=== PATIENT | female | born 1990 | race American Indian/Alaskan Native ===

== ENCOUNTER 2017-02-08 09:52 | Emergency (ER) | payer MEDICAID, OTHER ==
[2017-02-08 10:44] VITALS: BP 116/72
[2017-02-08] MEDS ORDERED: NACL 0.9% 1000 ML 1,000 ML IV ONE (10:44)
[2017-02-08 11:10] LABS: Basophils % (Auto) 0.2 % (0.0-1.8); Eosinophils % (Auto) 0.2 % (0.0-4.3); Hematocrit 38.3 % (30.3-42.9); Hemoglobin 12.4 gm/dl (10.1-14.3); Mean Corpuscular HGB Conc 32 % (30-34); Mean Corpuscular Hemoglobin 30 pg (28-32); Mean Corpuscular Volume 91 fl (79-97); Platelet Count 183 K/mm3 (140-440); White Blood Count 6.9 K/mm3 (4.5-11.0)
[2017-02-08 11:31] LABS: Alanine Aminotransferase 8 units/L (7-56); Albumin 4.3 g/dL (3.9-5); Albumin/Globulin Ratio 1.1 %; Alkaline Phosphatase 62 units/L (35-129); Anion Gap 16 mmol/L; BUN/Creatinine Ratio 12.85; Bilirubin,Total 1.7 mg/dL (0.1-1.2); Blood Urea Nitrogen 9 mg/dL (7-17); Calcium 9.2 mg/dL (8.4-10.2); Carbon Dioxide 27 mmol/L (22-30); Chloride 99.4 mmol/L (98-107); Glucose 106 mg/dL (65-100); Lipase 12 units/L (13-60); Potassium 3.9 mmol/L (3.6-5.0); Sodium 138 mmol/L (137-145); Total Protein 8.1 g/dL (6.3-8.2)
--- NOTE | 2017-02-13 01:23 | ED Elopement Review ---
ED Pt Elopement review - Results review Lab results: Laboratory Tests 02/08/17 02/08/17 02/08/17 10:56 10:56 10:56 WBC 6.9 RBC 4.20 Hgb 12.4 Hct 38.3 MCV 91 MCH 30 MCHC 32 RDW 14.0 Plt Count 183 Lymph % (Auto) 20.2 Forrest % (Auto) 5.7 Eos % (Auto) 0.2 Baso % (Auto) 0.2 Lymph # 1.4 Forrest # 0.4 Eos # 0.0 Baso # 0.0 Seg Neutrophils % 73.7 H Seg Neutrophils # 5.1 PT 13.1 INR 1.00 APTT 25.0 Sodium 138 Potassium 3.9 Chloride 99.4 Carbon Dioxide 27 Anion Gap 16 BUN 9 Creatinine 0.7 Estimated GFR > 60 BUN/Creatinine Ratio 12.85 Glucose 106 H Calcium 9.2 Total Bilirubin 1.7 H AST 15 ALT 8 Alkaline Phosphatase 62 Total Protein 8.1 Albumin 4.3 Albumin/Globulin Ratio 1.1 Lipase 12 L Blood Type Antibody Screen 02/08/17 10:56 WBC RBC Hgb Hct MCV MCH MCHC RDW Plt Count Lymph % (Auto) Forrest % (Auto) Eos % (Auto) Baso % (Auto) Lymph # Forrest # Eos # Baso # Seg Neutrophils % Seg Neutrophils # PT INR APTT Sodium Potassium Chloride Carbon Dioxide Anion Gap BUN Creatinine Estimated GFR BUN/Creatinine Ratio Glucose Calcium Total Bilirubin AST ALT Alkaline Phosphatase Total Protein Albumin Albumin/Globulin Ratio Lipase Blood Type O POSITIVE Antibody Screen Negative - Call Back decision Pt Call Back Decision: No action required
== END 2017-02-08 16:48 | disposition left against medical advice (07) ==
LOC: ED 09:52
DX: R10.9 Unspecified abdominal pain (principal); R11.2 Nausea with vomiting, unspecified; R19.7 Diarrhea, unspecified; Z53.21 Procedure and treatment not carried out due to patient leaving prior to being seen by health care provider
CPT/HCPCS: 36415; 80053; 83690; 85025; 85610; 85730; 86850; 86900; 86901

== ENCOUNTER 2018-03-03 11:23 | Outpatient (CLI) | payer MEDICAID ==
[2018-03-03] MEDS ORDERED: TYLENOL PO PRN (12:07)
[2018-03-03] MEDS ORDERED: ZOFRAN IV ONE (12:08)
[2018-03-03 12:54] LABS: Basophils % (Auto) 0.3 % (0.0-1.8); Hematocrit 30.4 % (30.3-42.9); Hemoglobin 10.1 gm/dl (10.1-14.3); Lymphocytes # (Auto) 0.8 K/mm3 (1.2-5.4); Mean Corpuscular HGB Conc 33 % (30-34); Mean Corpuscular Hemoglobin 30 pg (28-32); Mean Corpuscular Volume 91 fl (79-97); Monocytes # (Auto) 0.6 K/mm3 (0.0-0.8); Platelet Count 222 K/mm3 (140-440); Red Blood Count 3.33 M/mm3 (3.65-5.03); Red Cell Distribution Width 13.4 % (13.2-15.2)
[2018-03-03 12:58] LABS: Bilirubin,Urine NEG (Negative); Blood,Urine NEG (Negative); Color,Urine Yellow (Yellow); Mucus,Urine FEW /HPF
[2018-03-03] MEDS ORDERED: LACTATED RINGERS 1,000 ML IV SCH (13:00)
[2018-03-03 13:07] LABS: Alanine Aminotransferase 8 units/L (7-56); BUN/Creatinine Ratio 18; Blood Urea Nitrogen 9 mg/dL (7-17); Calcium 7.9 mg/dL (8.4-10.2); Hemolysis Index 0
[2018-03-03 13:52] LABS: Amphetamine Screen,Urine PRESUMPTIVE NEGATIVE; Benzodiazepines Screen,Urine PRESUMPTIVE NEGATIVE; Cannabinoid Screen,Urine PRESUMPTIVE NEGATIVE; Cocaine Screen,Urine PRESUMPTIVE NEGATIVE; Methadone Screen,Urine PRESUMPTIVE NEGATIVE; Opiate Screen,Urine PRESUMPTIVE NEGATIVE
== END 2018-03-03 13:50 | disposition home or self-care (01) ==
LOC: TRG 11:23
PROVIDERS: ATTEND Obstetrics & Gynecology
DX: O47.1 False labor at or after 37 completed weeks of gestation (principal); Z3A.37 37 weeks gestation of pregnancy
CPT/HCPCS: 36415; 80053; 80307; 81001; 85025; 96360; 96374; J2405; J7120

== ENCOUNTER 2018-03-25 04:49 | Inpatient (IN) | payer MEDICAID ==
[2018-03-25] MEDS ORDERED: POLYCILLIN/NS 2 GM/100 ML 2 GM/100 ML BAG IV ONE (06:44)
[2018-03-25] MEDS ORDERED: ePHEDrine SULFATE IV PRN ×2 (06:44→08:42)
[2018-03-25] MEDS ORDERED: XYLOCAINE 2% INFILTRATI ONE (06:44)
[2018-03-25] MEDS ORDERED: SUBLIMAZE IV PRN (06:44)
[2018-03-25] MEDS ORDERED: MINERAL OIL PO PRN (06:44)
[2018-03-25] MEDS ORDERED: BRETHINE SUB-Q PRN (06:44)
[2018-03-25] MEDS ORDERED: PITOCin/NS 20 UNIT/1000ML DRIP 20 UNITS/1,000 ML BAG IV SCH (07:00)
[2018-03-25] MEDS ORDERED: LACTATED RINGERS 1,000 ML IV SCH (07:00)
[2018-03-25] MEDS ORDERED: PITOCin/NS 30 UNIT/500ML 30 UNITS/500 ML BAG IV SCH (07:00)
--- NOTE | 2018-03-25 07:04 | History and Physical Report ---
History of Present Illness Date of examination: 03/25/18 (labor) History of present illness: EDC Confirmation: 03/30/2018 Gestational Age: 8 2/7 weeks Past History : 6 Term Births: 1 Living Children: 1 Para: 1 Aborta: 4 Elect. Ab: 2 Spont. Ab: 2 # 1 Delivery date: 2009 Delivery type: SAB # 2 Delivery date: 2011 Weeks Gestation: 40 Delivery type: Delivery location: [facility] Infant Sex: Male weight: 7 lbs 8 oz Comments: lifecycle # 3 Delivery date: 2012 Delivery type: SAB # 4 Delivery date: 2013 Delivery type: EAB # 5 Delivery date: 2015 Delivery type: EAB Past Medical History: Reviewed history from 06/14/2014 and no changes required: Negative Past Medical History all rxn to CT dye Past Surgical History: Reviewed history from 06/14/2014 and no changes required: negative Past Medical History Anesthesia Complications: negative Anemia: negative Autoimmune Disorder: negative Bleeding Disorder: negative Blood Transfusions: negative Breast Disease: negative Diabetes: negative Heart Disease: negative Hypertension: negative Hepatitis/Liver Disease: negative Kidney Disease/UTI: negative Neurologic/Epilepsy/Migraines: negative Phlebitis/Varicosities: negative Psychiatric: negative Pulmonary Disease/Asthma: negative Thyroid Disease: negative Hospitalizations: negative Surgery (Non-warhead maintenance specialist): negative Infection History Hx of STD: none HIV Risk Eval: low risk Hepatitis B Risk Eval: low risk Personal hx. of genital herpes: no Partner hx. of genital herpes: no Varicella/Chicken Pox Status: Previous Disease TB Risk: no Genetic History Congenital Heart Defect: Mom: no Dad: no Brenda Disease: Mom: no Dad: no Thalassemia Mom: no Dad: no Neural Tube Defect Mom: no Dad: no Down's Syndrome Mom: no Dad: no Juan A-Sachs Mom: no Dad: no Sickle Cell Disease/Trait Mom: no Dad: no Hemophilia Mom: no Dad: no Muscular Dystrophy Mom: no Dad: no Cystic Fibrosis Mom: no Dad: no Shanel Chorea Mom: no Dad: no Mental Retardation Mom: no Dad: no Fragile X Mom: no Dad: no Other Genetic/Chromosomal Disorder Mom: no Dad: no Child w/other defect Mom: no Dad: no Enviromental Exposures Xray Exposure: no Medication, drug, or alcohol use since LMP: no Chemical/Other Exposure: no Exposure to Cat Liter: no Hx of Parvovirus (Fifth Disease): no Active Medications (reviewed today): ZOFRAN ODT 8 MG TBDP (ONDANSETRON) 1 po q12hrs prn Current Allergies (reviewed today): * IODINE (Critical) Laboratory Results Routine Urinalysis Leukocytes: negative Nitrite: negative Urobilinogen: negative Protein: negative Blood: negative Ketone: negative Bilirubin: negative Glucose: negative Urine HCG: positive Review of Systems General Denies fever, chills, sweats, anorexia, fatigue, weakness, malaise, weight loss and sleep disorder. Complains of nausea. Denies vomiting, headache, swelling of legs, abdominal pain, vaginal discharge, vaginal bleeding and contractions. Denies vaginal discharge, incontinence, dysuria, hematuria, urinary frequency, amenorrhea, menorrhagia, abnormal vaginal bleeding, pelvic pain, genital sores, decreased libido, painful periods, painful sex, urinary urgency, hot flashes, vaginal dryness, vaginal itching and vaginal odor. CV Denies chest pains, palpitations, syncope, dyspnea on exertion, orthopnea, PND and peripheral edema. Resp Denies cough, dyspnea at rest, excessive sputum, hemoptysis, wheezing and pleurisy. GI Denies nausea, vomiting, diarrhea, constipation, change in bowel habits, abdominal pain, melena, hematochezia, jaundice, gas/bloating, indigestion/ heartburn, dysphagia and odynophagia. Endo Denies cold intolerance, heat intolerance, polydipsia, polyphagia, polyuria and unusual weight change. Breast Denies left breast lump, right breast lump, nipple discharge, bloody discharge from nipple, breast pain, abnormal mammogram and breast enlargement. MS Denies back pain, joint pain, joint swelling, muscle cramps, muscle weakness, stiffness, arthritis, sciatica, restless legs, leg pain at night and leg pain with exertion. Derm Denies rash, itching, dryness and suspicious lesions. Neuro Denies paralysis, paresthesias, headache, seizures, tremors, vertigo, transient blindness, frequent falls, frequent headaches and difficulty walking. Psych Denies depression, anxiety, irritability and mood swings. Eyes Denies blurring, diplopia, irritation, discharge, vision loss, eye pain and photophobia. ENT Denies earache, ear discharge, tinnitus, decreased hearing, nasal congestion, nosebleeds, sore throat and hoarseness. Allergy Denies urticaria, allergic rash, hay fever and recurrent infections. Heme Denies abnormal bruising, bleeding and enlarged lymph nodes. 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 Adnexae: no masses or tenderness Rectovaginal: no masses or tenderness Other Exam Findings Hard to guess size, uterus so soft its hard to feel Past History - Obstetrical History Expected Date of Delivery: 03/30/18 Actual Gestation: 39 Week(s) 2 Day(s) : 6 Para: 1 Hx # Term Pregnancies: 1 Spontaneous Abortions: 2 Induced : 2 Number of Living Children: 1 Medications and Allergies Allergies Allergy/AdvReac Type Severity Reaction Status Date / Time No Known Allergies Allergy Unverified 02/08/17 10:44 Home Medications Medication Instructions Recorded Confirmed Last Taken Type Pnv No.95/Ferrous Fum/Folic AC 1 each PO QDAY 03/03/18 03/03/18 2 Days Ago History [ Formula Tablet] ~03/01/18 Active Meds: Active Medications Ephedrine Sulfate (Ephedrine Sulfate) 10 mg IV Q2M PRN PRN Reason: Hypotension Fentanyl (Sublimaze) 100 mcg IV Q2H PRN PRN Reason: Labor Pain Ampicillin Sodium (Ampicillin/Ns 1 Gm/50 Ml) 1 gm in 50 mls @ 100 mls/hr IV Q4HR ASAD; Protocol Ampicillin Sodium (Polycillin/Ns 2 Gm/100 Ml) 2 gm in 100 mls @ 100 mls/hr IV ONCE ONE; Protocol Stop: 03/25/18 07:43 Lactated Ringer's (Lactated Ringers) 1,000 mls @ 125 mls/hr IV DIRECT ASAD Oxytocin/Sodium Chloride (Pitocin/Ns 20 Unit/1000ml Drip) 20 units in 1,000 mls @ 125 mls/hr IV DIRECT ASAD Oxytocin/Sodium Chloride (Pitocin/Ns 30 Unit/500ml) 30 units in 500 mls @ 4 mls /hr IV Q30MIN ASAD; Protocol Mineral Oil (Mineral Oil) 30 ml PO QHS PRN PRN Reason: Constipation Terbutaline Sulfate (Brethine) 0.25 mg SUB-Q ONCE PRN PRN Reason: Hyperstimulation/Hypertonicity - Vital Signs Vital signs: Vital Signs Pulse BP Pulse Ox 68 123/59 100 03/25/18 05:05 03/25/18 05:05 03/25/18 05:05 Temp Pulse Resp BP Pulse Ox 97.2 F L 70 20 123/59 99 03/25/18 05:22 03/25/18 05:25 03/25/18 05:22 03/25/18 05:22 03/25/18 05:25 - Physical Exam Breasts: Positive: deferred Cardiovascular: Regular rate, Normal S1, Normal S2 Lungs: Positive: Normal air movement Abdomen: Positive: normal appearance, soft, normal bowel sounds. Negative: distention, tenderness Genitourinary (Female): Positive: normal external genitalia Vulva: both: normal Vagina: Positive: normal moisture. Negative: discharge Cervix: Negative: lesion, discharge Uterus: Positive: normal size, normal contour Adnexa: both: normal Anus/Rectum: Positive: normal perianal skin, heme negative. 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 Strep Gp B SIMBA [A] Positive HBsAg Screen Negative Negative *1 Rubella Antibodies, IgG 2.56 index Immune >0.99 *2 Non-immune <0.90 Equivocal 0.90 - 0.99 Immune >0.99 ABO Grouping O *3 Rh Factor Positive *4 Please note: Prior records for this patient's ABO / Rh type are not available for additional verification. Antibody Screen Negative Negative *5 RPR Non Reactive Non Reactive *6 WBC 5.9 x10E3/uL 3.4-10.8 *7 RBC 3.85 x10E6/uL 3.77-5.28 *8 Hemoglobin 11.4 g/dL 11.1-15.9 *9 Hematocrit 34.6 % 34.0-46.6 *10 MCV 90 fL 79-97 *11 MCH 29.6 pg 26.6-33.0 *12 MCHC 32.9 g/dL 31.5-35.7 *13 RDW 12.9 % 12.3-15.4 *14 Platelets 260 x10E3/uL 150-379 *15 Neutrophils 66 % Not Estab. *16 Lymphs 25 % Not Estab. *17 Monocytes 9 % Not Estab. *18 Eos 0 % Not Estab. *19 Basos 0 % Not Estab. *20 ! Immature Cells <No Reported Value> *21 Neutrophils (Absolute) 3.9 x10E3/uL 1.4-7.0 *22 Lymphs (Absolute) 1.5 x10E3/uL 0.7-3.1 *23 Monocytes(Absolute) 0.5 x10E3/uL 0.1-0.9 *24 Eos (Absolute) 0.0 x10E3/uL 0.0-0.4 *25 Baso (Absolute) 0.0 x10E3/uL 0.0-0.2 *26 ! Immature Granulocytes 0 % Not Estab. *27 ! Immature Grans (Abs) 0.0 x10E3/uL 0.0-0.1 *28 ! NRBC <No Reported Value> *29 Hematology Comments: <No Reported Value> *30 Tests: (2) Cystic Fibrosis Profile (229113) ! CF, Screen Comment: *31 RESULTS: Negative for 32 mutations analyzed Tests: (3) HB Solu + Rflx [facility] (185964) Hemoglobin (Hgb) Solubility Negative Negative *33 Tests: (4) Panel 619523 ([id number]) HIV Screen 4th Generation wRfx Non Reactive Non Reactive *34 Tests: (5) HCV Ab w/Rflx to Verification ([id number]) ! HCV Ab <0.1 s/co ratio 0.0-0.9 *35 Tests: (6) Comment: ([id number]) ! Comment: SPRCS *36 Non reactive HCV antibody screen is consistent with no HCV infection, unless recent infection is suspected or other evidence exists to indicate HCV infection. Tests: (7) Urine Culture, Routine ([id number]) Urine Culture, Routine Final report *37 Tests: (8) Result ([id number]) ! Result 1 MUG *38 Mixed urogenital reuben 10,000-25,000 colony forming units per mL Assessment and Plan 27yo @ 39 weeks in active labor. GBS+ Orders in EMR. Anticipate delivery.
[2018-03-25 07:34] LABS: Hemoglobin 10.8 gm/dl (10.1-14.3); Mean Corpuscular HGB Conc 33 % (30-34); Mean Corpuscular Hemoglobin 30 pg (28-32); Mean Corpuscular Volume 92 fl (79-97); Platelet Count 257 K/mm3 (140-440); Red Blood Count 3.58 M/mm3 (3.65-5.03); Red Cell Distribution Width 13.6 % (13.2-15.2)
[2018-03-25] MEDS ORDERED: XYLOCAINE MPF 2% ONE (08:30)
[2018-03-25] MEDS ORDERED: NARCAN 2 MG/2 ML IV PRN (08:42)
--- NOTE | 2018-03-25 08:42 | Anesthesia Consultation ---
Anesthesia Consult and Med Hx Date of service: 03/25/18 - Airway Anesthetic Teeth Evaluation: Good ROM Head & Neck: Adequate Mental/Hyoid Distance: Adequate Mallampati Class: Class II - Pre-Operative Health Status ASA Pre-Surgery Classification: ASA2 Proposed Anesthetic Plan: Epidural, Spinal - Pulmonary Hx Asthma: No - Cardiovascular System Hx Hypertension: No - Central Nervous System Hx Seizures: No Hx Psychiatric Problems: No - Endocrine Hx Renal Disease: No Hx Hypothyroidism: No Hx Hyperthyroidism: No - Hematic Hx Anemia: No Hx Sickle Cell Disease: No - Other Systems Hx Alcohol Use: No
[2018-03-25] MEDS ORDERED: fentaNYL-BUPIV 2 MCG/ML-0.125% 200 MCG/100 ML BAG EPIDURAL SCH (09:00)
[2018-03-25] MEDS ORDERED: AMPICILLIN/NS 1 GM/50 ML 1 GM/50 ML BAG IV SCH (10:48)
[2018-03-25] MEDS ORDERED: ZOFRAN IV PRN (11:57)
[2018-03-25] MEDS ORDERED: TYLENOL PO PRN (11:57)
[2018-03-25] MEDS ORDERED: BENADRYL PO PRN (11:57)
[2018-03-25] MEDS ORDERED: LANSINOH TP PRN (11:57)
[2018-03-25] MEDS ORDERED: PHENERGAN PO PRN (11:57)
[2018-03-25] MEDS ORDERED: NORCO 5/325 PO PRN (11:57)
[2018-03-25] MEDS ORDERED: MILK OF MAGNESIA PO PRN (11:57)
[2018-03-25] MEDS ORDERED: TUCKS PAD TP PRN (11:57)
[2018-03-25] MEDS ORDERED: DULCOLAX PR PRN (11:57)
[2018-03-25] MEDS ORDERED: SODIUM CHLORIDE FLUSH SYRINGE 10 ML IV NR (12:00)
--- NOTE | 2018-03-25 12:04 | Procedure Note ---
OB Delivery Note - Delivery Date of Delivery: 03/25/18 Roadmaster: WILLIAM ARNETT Estimated blood loss: 300cc - Vaginal Delivery presentation: vertex Delivery position: OA Intrapartum events: PROM->1hr before delivery Delivery induction: none Delivery augmentation: pitocin Delivery monitor: external FHT, external uterine Route of delivery: Delivery placenta: spontaneous Delivery cord: nuchal cord, 3 umbilical vessels Episiotomy: none Delivery laceration: none Anesthesia: epidural Delivery comments: live born female over intact perineum, CAN X 1 delivered through. Baby placed skin to skin on mom's abdomen Cord blood obt Placenta and membrane del complete and intact, 3 vessel cord. Pit IVFs. 8/9, EBL 300, Wgt 7-5 Mom and baby remain LDR stable. - Infant A at 1 minute: 8 at 5 minutes: 9 Infant Gender: Female (wgt 7-5)
[2018-03-25] MEDS: MOTRIN PO SCH ×2 (14:14→23:38)
[2018-03-25] MEDS: COLACE PO SCH (21:55)
[2018-03-25 23:58] LABS: Hematocrit 28.6 % (30.3-42.9); Hemoglobin 9.4 gm/dl (10.1-14.3)
[2018-03-26] MEDS: MOTRIN PO SCH ×4 (05:42→18:42)
--- NOTE | 2018-03-26 08:13 | Discharge Summary ---
Providers - Providers Date of Admission: 03/25/18 07:02 Date of discharge: 03/26/18 (desires d/c home today) Attending physician: TRE PRITCHETT Primary care physician: TRE PRITCHETT Hospitalization Reason for admission: labor Condition: Good Pertinent studies: post delivery H&H 9.4/28.6 Procedures: vaginal Hospital course: uncomplicated labor, and course. GBS +; treated with 2 doses of antibiotics. Disposition: DC- TO HOME OR SELFCARE - Discharge Diagnoses (1) Spontaneous vaginal delivery Status: Acute Core Measure Documentation - Palliative Care Palliative Care/ Comfort Measures: Not Applicable - Core Measures Any of the following diagnoses?: none Exam - Constitutional Vitals: Temp Pulse Resp BP Pulse Ox 98.2 F 66 20 108/54 97 03/26/18 00:00 03/26/18 00:00 03/26/18 00:00 03/26/18 00:00 03/25/18 17:03 General appearance: Present: no acute distress, well-nourished - EENT Eyes: Present: PERRL ENT: hearing intact, clear oral mucosa - Neck Neck: Present: supple, normal ROM - Respiratory Respiratory effort: normal Respiratory: bilateral: CTA - Cardiovascular Heart Sounds: Present: S1 & S2. Absent: rub, click - Extremities Extremities: pulses symmetrical, No edema Peripheral Pulses: within normal limits - Abdominal General gastrointestinal: Present: soft, non-tender, non-distended, normal bowel sounds Female genitourinary: Present: normal - Integumentary Integumentary: Present: clear, warm, dry - Musculoskeletal Musculoskeletal: gait normal, strength equal bilaterally - Psychiatric Psychiatric: appropriate mood/affect, intact judgment & insight - Neurologic Neurologic: CNII-XII intact, moves all extremities - Additional findings Additional findings: lochia scant, fundus firm, no s/s anemia. Plan Activity: no restrictions Diet: regular Follow up with: TRE PRITCHETT MD [Primary Care Provider] - 6 Weeks (Congratulations! Please call [phone] to schedule your appointment in 6 weeks. Call for any questions or concerns. )
[2018-03-26] MEDS ORDERED: M-M-R II VACCINE SUB-Q ONE (11:57)
[2018-03-26] MEDS ORDERED: BOOSTRIX IM ONE (11:57)
[2018-03-26] MEDS: COLACE PO SCH (15:27)
[2018-03-26] MEDS: PRENATAL VITAMIN PO SCH (15:28)
[2018-03-27] MEDS: MOTRIN PO SCH (06:33)
[2018-03-27] MEDS: COLACE PO SCH (10:11)
[2018-03-27] MEDS: PRENATAL VITAMIN PO SCH (10:11)
[2018-03-27 20:33] VITALS: BP 117/65
== END 2018-03-27 17:33 | disposition home or self-care (01) | DRG 775 ==
LOC: TRG 04:49 → LD 07:02 → OB 14:30
PROVIDERS: ADMIT Obstetrics & Gynecology; ATTEND Obstetrics & Gynecology
PROC: 10E0XZZ Delivery of Products of Conception, External Approach (ICD-10-PCS; principal; 2018-03-25)
PROC: 3E0R3BZ Introduction of Anesthetic Agent into Spinal Canal, Percutaneous Approach (ICD-10-PCS; 2018-03-25)
PROC: 00HU33Z Insertion of Infusion Device into Spinal Canal, Percutaneous Approach (ICD-10-PCS; 2018-03-25)
PROC: 3E0234Z Introduction of Serum, Toxoid and Vaccine into Muscle, Percutaneous Approach (ICD-10-PCS; 2018-03-26)
DX: O42.02 Full-term premature rupture of membranes, onset of labor within 24 hours of rupture (principal); O99.824 Streptococcus B carrier state complicating childbirth; O69.81X0 Labor and delivery complicated by cord around neck, without compression, not applicable or unspecified; Z3A.39 39 weeks gestation of pregnancy; Z37.0 Single live birth; Z23 Encounter for immunization
CPT/HCPCS: 36415; 85014; 85018; 85027; 86592; 86850; 86900; 86901; 99211; G0463; J0290; J2590; J3010; J7120

== ENCOUNTER 2018-05-27 23:13 | Emergency (ER) | payer MEDICAID ==
[2018-05-28 00:17] LABS: Basophils % (Auto) 0.4 % (0.0-1.8); Eosinophils # (Auto) 0.1 K/mm3 (0.0-0.4); Eosinophils % (Auto) 0.8 % (0.0-4.3); Hematocrit 37.6 % (30.3-42.9); Hemoglobin 12.3 gm/dl (10.1-14.3); Lymphocytes # (Auto) 1.9 K/mm3 (1.2-5.4); Lymphocytes % (Auto) 29.6 % (13.4-35.0); Mean Corpuscular HGB Conc 33 % (30-34); Mean Corpuscular Hemoglobin 30 pg (28-32); Mean Corpuscular Volume 92 fl (79-97); Monocytes # (Auto) 0.6 K/mm3 (0.0-0.8); Monocytes % (Auto) 9.3 % (0.0-7.3); Platelet Count 263 K/mm3 (140-440); Red Blood Count 4.08 M/mm3 (3.65-5.03); Red Cell Distribution Width 13.5 % (13.2-15.2)
[2018-05-28 00:29] LABS: BUN/Creatinine Ratio 9; Blood Urea Nitrogen 8 mg/dL (7-17); Calcium 9.3 mg/dL (8.4-10.2); Hemolysis Index 3
--- NOTE | 2018-05-28 00:39 | XRay Report ---
FINAL REPORT PROCEDURE: XR CHEST 1V AP TECHNIQUE: Chest radiograph anteroposterior view. CPT 51996 HISTORY: [facility] Respiratory Infection COMPARISON: No prior studies are available for comparison. FINDINGS: Heart: Normal. Mediastinum/Vessels: Normal. Lungs/Pleural space: Lungs are clear and expanded. There are no infiltrates, effusions or pneumothoraces.. Bony thorax: No acute osseous abnormality. Life support devices: None. IMPRESSION: No acute cardiopulmonary abnormality.
[2018-05-28] MEDS ORDERED: LIDOCAINE VISCOUS 2% PO ONE (01:00)
[2018-05-28] MEDS ORDERED: ALUM-MAG HYDROX-SIMETH 200-200-20MG/5ML PO ONE (01:00)
[2018-05-28] MEDS ORDERED: TORADOL IV ONE (01:00)
[2018-05-28] MEDS ORDERED: NACL 0.9% 1000 ML 1,000 ML IV ONE (01:09)
[2018-05-28] MEDS ORDERED: BENADRYL ONE (01:34)
[2018-05-28] MEDS ORDERED: BENADRYL IV ONE (01:41)
--- NOTE | 2018-05-28 02:03 | Emergency Department Report ---
ED Chest Pain HPI - General Chief Complaint: Upper Respiratory Infection Stated Complaint: CP Time Seen by Provider: 05/28/18 00:59 Source: patient Mode of arrival: Ambulatory Limitations: Physical Limitation - History of Present Illness Initial Comments: 1 day of sudden onset right-sided sharp chest pain that is constant, radiating to the back, pleuritic, and nonexertional. Patient smokes. Social drinker. No family history of ACS. Does not take control. No DVT or PE. No family history of sudden cardiac . Patient feels that when she lies back pain is worse. She never has had a pain like this before. Severity scale (0 -10): 10 - Related Data Home Medications Medication Instructions Recorded Confirmed Last Taken Pnv No.95/Ferrous Fum/Folic AC 1 each PO QDAY 03/03/18 03/25/18 03/24/18 17:00 [ Formula Tablet] 1 Allergies Allergy/AdvReac Type Severity Reaction Status Date / Time Iodinated Contrast- Oral and Allergy Anaphylaxis Verified 05/28/18 01:30 IV Dye Heart Score - HEART Score History: Slightly suspicious EKG: Normal Age: < 45 Risk factors: 1-2 risk factors Troponin: < normal limit HEART Score: 1 ED Review of Systems ROS: Stated complaint: CP Other details as noted in HPI Comment: All other systems reviewed and negative Cardiovascular: chest pain ED Past Medical Hx - Past Medical History Hx Hypertension: No Hx Congestive Heart Failure: No Hx Diabetes: No Hx Deep Vein Thrombosis: No Hx Renal Disease: No Hx Sickle Cell Disease: No Hx Headaches / Migraines: Yes Hx Seizures: No Hx Asthma: No Hx COPD: No Hx HIV: No - Social History Smoking Status: Current Every Day Smoker Substance Use Type: Alcohol - Medications Home Medications: Home Medications Medication Instructions Recorded Confirmed Last Taken Type Pnv No.95/Ferrous Fum/Folic AC 1 each PO QDAY 03/03/18 03/25/18 03/24/18 17:00 History [ Formula Tablet] 1 ED Physical Exam - General General appearance: alert, in no apparent distress - Head Head exam: Present: atraumatic, normocephalic - Eye Eye exam: Present: normal appearance - ENT ENT exam: Present: mucous membranes moist - Neck Neck exam: Present: normal inspection - Respiratory Respiratory exam: Present: normal lung sounds bilaterally, other (splinting in the room). Absent: respiratory distress - Cardiovascular Cardiovascular Exam: Present: regular rate, normal rhythm, other (right chest wall tenderness). Absent: systolic murmur, diastolic murmur, rubs, gallop - GI/Abdominal GI/Abdominal exam: Present: soft, normal bowel sounds. Absent: tenderness - Extremities Exam Extremities exam: Present: normal inspection - Back Exam Back exam: Present: normal inspection - Neurological Exam Neurological exam: Present: alert, oriented X3 - Psychiatric Psychiatric exam: Present: normal affect, normal mood - Skin Skin exam: Present: warm, dry, intact, normal color. Absent: rash ED Course Vital Signs 05/27/18 05/28/18 05/28/18 23:42 00:40 00:51 Temperature 98.7 F 98.8 F Pulse Rate 62 67 Respiratory 20 22 Rate Blood Pressure 113/41 Blood Pressure 94/50 [Left] O2 Sat by Pulse 100 100 100 Oximetry 05/28/18 05/28/18 05/28/18 01:01 01:31 02:00 Temperature Pulse Rate 59 L 60 Respiratory 12 13 Rate Blood Pressure 94/50 112/66 Blood Pressure [Left] O2 Sat by Pulse 99 96 Oximetry ED Medical Decision Making - Lab Data Result diagrams: 05/27/18 23:55 05/27/18 23:55 - EKG Data -: EKG Interpreted by Ak EKG shows normal: sinus rhythm, axis, QRS complexes, ST-T waves Rate: normal - EKG Data Interpretation: other (first-degree heart block) - Radiology Data Radiology results: image reviewed - Medical Decision Making 27-year-old female with no significant past medical history presents to the ER with pleuritic chest pain. Vital signs significant for mild hypertension with a systolic blood pressure in the low 100s. Lab work is significant for a positive d-dimer of 300. Chest x-ray is unremarkable. EKG is nonischemic. Given the positive d-dimer, I ordered a CT chest. Patient is appears to have mild splinting at bedside. She has a contrast allergy of hives and lip swelling. Denies any respiratory issues or throat swelling with contrast. I told the patient I could give her IV Benadryl beforehand to pretreat her versus doing a VQ scan. Patient felt comfortable receiving premedication and then getting the scan. Disposition will be per CT chest results. Presentation is concerning for PE. However, patient has no significant risk factors for PE. If negative, I would offer the patient's symptom control with the goals of outpatient follow-up. It would not be unreasonable given patient's level of discomfort, to observe her overnight given the acute onset of her symptoms. - Differential Diagnosis PE, ACS, pneumothorax, pericarditis, pneumonia, costochondritis Critical care attestation.: If time is entered above; I have spent that time in minutes in the direct care of this critically ill patient, excluding procedure time. ED Disposition Clinical Impression: Chest pain Disposition: Z-01 MED SCREENING EXAM-CONT Is pt being admited?: No Does the pt Need Aspirin: No Condition: Stable Instructions: Chest Pain (ED) Referrals: PRIMARY CARE, [Primary Care Provider] - 3-5 Days
[2018-05-28] MEDS ORDERED: DILAUDID IV ONE (02:14)
[2018-05-28] MEDS ORDERED: PEPCID IV ONE (02:49)
--- NOTE | 2018-05-28 03:23 | Cat Scan Report ---
FINAL REPORT PROCEDURE: CT ANGIO CHEST TECHNIQUE: Computerized tomographic angiography of the chest was performed after the IV injection of iodinated nonionic contrast including image processing. The image data was postprocessed using 2-dimensional multiplanar reformatted (MPR) and 3-dimensional (MIP and/or volume rendered) techniques. HISTORY: concern for PE, p/w rt chest pain COMPARISON: No prior studies are available for comparison. FINDINGS: Heart and pericardium: Normal. Thoracic aorta: Normal. Pulmonary vasculature: Normal. Lymph nodes: No enlarged thoracic lymph nodes. Lungs: Lungs are expanded. There are infiltrates at the right lung base.. Pleural space: There is no pleural effusion or pneumothorax. Musculoskeletal structures: No significant abnormality. Upper abdominal structures: Images of the upper abdomen demonstrate numerous hypodensities in the liver which could be small cysts.. IMPRESSION: There is no pulmonary embolism. There is no thoracic aortic aneurysm or dissection. Lungs are expanded. There are infiltrates at the right lung base.. There is no pleural effusion or pneumothorax. Images of the upper abdomen demonstrate numerous hypodensities in the liver which could be small cysts..
[2018-05-28] MEDS ORDERED: NORCO 5/325 PO ONE (03:42)
[2018-05-28] MEDS ORDERED: LEVAQUIN PO ONE (03:42)
--- NOTE | 2018-05-28 03:44 | Emergency Department Report ---
Blank Doc - Documentation Documentation: I assumed care of patient from Dr. Kay. I evaluated patient. She has right sided chest pain with mild dyspnea. She appeared comfortable on my exam. She has only mild nonproductive cough. Hx of tobacco abuse. +infiltrates on right chest. Will treat for CAP with levaquin and norco. First dose of levaquin provided in ED. No indication of anaphylaxis or drug reaction from IV dye. dc'd home in stable condition. Patient appears comfortable.
[2018-05-28 04:17] VITALS: BP 110/52
== END 2018-05-28 04:17 | disposition home or self-care (01) ==
LOC: ED 23:13
DX: R07.89 Other chest pain (principal); G43.909 Migraine, unspecified, not intractable, without status migrainosus; F17.200 Nicotine dependence, unspecified, uncomplicated; Z91.041 Radiographic dye allergy status
CPT/HCPCS: 36415; 71045; 71275; 80048; 83880; 84484; 85025; 85379; 93005; 93010; 96374; 96375; 99285; J1170; J1200; J1885; J7030; Q9967

== ENCOUNTER 2021-03-23 08:45 | Day surgery (SDC) | payer MEDICAID ==
--- NOTE | 2021-03-22 22:14 | History and Physical Report ---
History of Present Illness Date of examination: 03/22/21 History of present illness: Patient has been reassessed/reevaluated. H&P has been reviewed. No interval changes. This is a 30 years old female who presents with missed .Patient with Bhcg > 8000 with empty sac intrauterine sac on ultrasound. Patient desires definitive treatment Vital Signs: Patient Profile: 30 Years Old Female LMP: 01/24/2021 Height: 69 inches Weight: 158 pounds BMI: 23.33 Temp: 97.9 degrees F BP sittin / 60 (left arm) Menstrual History: LMP (date): 01/24/2021 Past History : 7 Term Births: 2 Premature Births: 0 Living Children: 2 Para: 2 Mult. Births: 0 Prev : 0 Aborta: 4 Elect. Ab: 2 Spont. Ab: 2 Ectopics: 0 # 1 Delivery date: 2009 Weeks Gestation: unsure Delivery type: SAB Comments: had D&C, no complications # 2 Delivery date: 2011 Weeks Gestation: 40 labor: no Delivery type: Hours of labor: 15 Anesthesia type: epidural Delivery location: [facility] Sex: Male weight: 7 lbs 8 oz Comments: lifecycle, no complications # 3 Delivery date: 2012 Weeks Gestation: unsure Delivery type: SAB Comments: had D&C, no complications # 4 Delivery date: 2013 Delivery type: EAB Comments: D&C, no complications # 5 Delivery date: 2015 Delivery type: EAB Comments: D&C, no complications # 6 Delivery date: 03/25/2018 Weeks Gestation: 39 labor: no Delivery type: Hours of labor: 9 Anesthesia type: epidural Delivery location: [facility] Infant Sex: female weight: 7.31 Name: "Padma" Comments: GBS+, 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 of genital herpes: no Partner hx. of genital herpes: no Hx of STD: none Current Allergies (reviewed today): * IODINE (Critical) Past Medical History: "lump in chest during pregnancies"- Past Surgical History: D&C x4 Risk Factors: Smoked Tobacco Use: Former smoker Cigarettes: Yes Year quit: 02/2021 Smokeless Tobacco Use: Never Passive smoke exposure: no Drug use: no HIV high-risk behavior: no Caffeine use: 0 drinks per day Alcohol use: no Exercise: no Seatbelt use: 100 % Review of Systems General Denies fever, chills, sweats, anorexia, fatigue, weakness, malaise, weight loss and sleep disorder. Denies vaginal discharge, incontinence, dysuria, hematuria, urinary frequency, amenorrhea, menorrhagia, abnormal vaginal bleeding, pelvic pain, genital sores, decreased libido, painful periods, painful sex, urinary urgency, hot flashes, vaginal dryness, vaginal itching and vaginal odor. CV Denies chest pains, palpitations, syncope, dyspnea on exertion, orthopnea, PND and peripheral edema. Resp Denies cough, dyspnea at rest, excessive sputum, hemoptysis, wheezing and pleurisy. GI Denies nausea, vomiting, diarrhea, constipation, change in bowel habits, abdominal pain, melena, hematochezia, jaundice, gas/bloating, indigestion/heartburn, dysphagia and odynophagia. Breast Denies left breast lump, right breast lump, nipple discharge, bloody discharge from nipple, breast pain, abnormal mammogram and breast enlargement. Psych Denies depression, anxiety, irritability and mood swings. Past History Past Medical History: other (SEE FOR DETAILS) Past Surgical History: Other (SEE FOR DETAILS) Social history: full code (SEE FOR DETAILS) Family history: other (SEE FOR DETAILS) Medications and Allergies Allergies Allergy/AdvReac Type Severity Reaction Status Date / Time Iodinated Contrast Media Allergy Anaphylaxis Verified 03/22/21 16:02 Home Medications Medication Instructions Recorded Confirmed Last Taken Type No Known Home Medications [No 03/22/21 03/22/21 Unknown History Reported Home Medications] Review of Systems Constitutional: other (SEE FOR DETAILS) Exam - Physical Exam Narrative exam: HEENT: normocephalic, no lesions or deformities Skin no significant abnormal lesions or rashes Chest: respiratory effort normal, clear to auscultation CV: regular, normal S1-S2, no murmur, no rub, no gallop Abdomen: soft, nontender, no HSM Neuro: no gross anomalities Extremities: no clubbing, cyanosis, or edema 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 Questions answered. Medical and surgical treatment options discussed Discussed risks and benefits of expectant management, treatments with medications and dilatation and curretage. Patient desires D&C. Discussed risk of surgery including infection, bleeding and risk of perforating her uterus. Questions answered. Patient understands and desires to proceed
[2021-03-23] MEDS ORDERED: ONDANSETRON 4 MG/2 ML INJ ONE (08:54)
[2021-03-23] MEDS ORDERED: LIDOCAINE MPF (2%) 20 MG/1 ML VIAL 5 ML ONE (08:54)
[2021-03-23] MEDS ORDERED: KETOROLAC 30 MG/1 ML INJ ONE (08:54)
[2021-03-23] MEDS ORDERED: dexAMETHasone 20 MG/5 ML VIAL ONE (08:54)
[2021-03-23] MEDS ORDERED: fentaNYL 100 MCG/2 ML INJ ONE (08:55)
[2021-03-23] MEDS ORDERED: propofoL 200 MG/20 ML VIAL IV ONE (08:55)
[2021-03-23] MEDS ORDERED: LACTATED RINGERS 1,000 ML ONE (09:09)
[2021-03-23] MEDS ORDERED: HYDROmorphone 1 MG/1 ML INJ IV PRN ×2 (09:24)
[2021-03-23] MEDS ORDERED: ONDANSETRON 4 MG/2 ML INJ IV PRN (09:24)
--- NOTE | 2021-03-23 09:25 | Anesthesia Day of Surgery ---
Anesthesia Day of Surgery - Day of Surgery Patient Examined: Yes Patient H&P Reviewed: Yes Patient is NPO: Yes
--- NOTE | 2021-03-23 09:27 | Anesthesia Consultation ---
Anesthesia Consult and Med Hx Date of service: 03/23/21 - Airway Anesthetic Teeth Evaluation: Crowns (Missing teeth) ROM Head & Neck: Adequate Mental/Hyoid Distance: Adequate Mallampati Class: Class II Intubation Access Assessment: Good - Pre-Operative Health Status ASA Pre-Surgery Classification: ASA2 Proposed Anesthetic Plan: General - Pulmonary Hx Smoking: Yes (Quit 5 weeks ago) Hx Asthma: No COPD: No Hx Pneumonia: No - Cardiovascular System Hx Hypertension: No - Central Nervous System Hx Seizures: No Hx Psychiatric Problems: No - Endocrine Hx Renal Disease: No Hx End Stage Renal Disease: No Hx Hypothyroidism: No Hx Hyperthyroidism: No - Hematic Hx Anemia: No Hx Sickle Cell Disease: No - Other Systems Hx Alcohol Use: No Hx Cancer: No
[2021-03-23] MEDS ORDERED: LACTATED RINGERS 1,000 ML IV SCH (09:30)
[2021-03-23 09:55] LABS: Basophils % (Auto) 0.3 % (0.0-1.8); Eosinophils % (Auto) 0.9 % (0.0-4.3); Hematocrit 34.5 % (30.3-42.9); Hemoglobin 11.5 gm/dl (10.1-14.3); Lymphocytes # (Auto) 1.4 K/mm3 (1.2-5.4); Lymphocytes % (Auto) 42.5 % (13.4-35.0); Mean Corpuscular HGB Conc 33 % (30-34); Mean Corpuscular Volume 92 fl (79-97); Monocytes # (Auto) 0.5 K/mm3 (0.0-0.8); Monocytes % (Auto) 13.7 % (0.0-7.3); Platelet Count 212 K/mm3 (140-440); Red Blood Count 3.74 M/mm3 (3.65-5.03); Red Cell Distribution Width 12.9 % (13.2-15.2)
[2021-03-23] MEDS ORDERED: MIDAZOLAM 2 MG/2 ML INJ IV NR (10:00)
[2021-03-23] MEDS ORDERED: SILVER NITRATE APPLICATOR 1 EA TP ONE (11:10)
[2021-03-23] MEDS ORDERED: METHYLERGONOVINE MALEATE 0.2 MG/ML VIAL IM ONE ×2 (12:07→12:15)
[2021-03-23] MEDS ORDERED: SODIUM CHLORIDE 0.9% IRR 1,500 ML BOTTLE IR ONE (12:20)
--- NOTE | 2021-03-23 12:26 | Operative Report ---
Operative Report Operative Report: Date of procedure: March 23, 2021 Pre-operative diagnosis: Missed Post-operative diagnosis: Same Procedure name(s): Suction dilatation and curettage Surgeon: Ceferino Viveros MD Dock Pumper: KIRTI Anesthesia: General EBL: 50 mL Complications: None Findings: A moderate amount of tissue consistent with products of conception Specimen(s): Uterine contents Procedure: The patient was brought operating room where general anesthesia was induced without difficulty. Patient was placed in dorsal lithotomy position prepped and draped in the usual sterile manner. Rubber catheter was used to empty her bladder. Speculum placed in the vagina. Tenaculum was placed at 12:00. The cervix was dilated progressively with Hegar dilators. A 10 mm suction catheter was placed through the cervical os. Several passes of the suction catheter removed the uterine contents. A gentle curettage was done with a banjo curettte. On until a gritty sensation was felt throughout the uterine cavity. Further suction with the suction curettage revealed no further products. All instruments were removed patient was hemostatic. She was awakened in the operating room and accompanied to recovery room in good condition.
--- NOTE | 2021-03-23 12:29 | Short Stay Summary ---
Short Stay Documentation Date of service: 03/23/21 - History H&P: dictated Past Medical History: other (SEE FOR DETAILS) Past Surgical History: Other (SEE FOR DETAILS) Social history: full code (SEE FOR DETAILS) - Allergies and Medications Current Medications: Allergies Iodinated Contrast Media Allergy (Verified 03/22/21 16:02) Anaphylaxis Home Medications Medication Instructions Recorded Confirmed Last Taken Type DOXYCYCLINE Hyclate [Vibramycin 100 mg PO Q12HR #14 capsule 03/23/21 Unknown Rx CAP] Ferrous Sulfate [Feosol 325 MG tab] 325 mg PO BID #60 tablet 03/23/21 Unknown Rx Ibuprofen [Motrin] 800 mg PO Q6H PRN #30 tablet 03/23/21 Unknown Rx Active Medications Hydromorphone HCl (Hydromorphone 1 Mg/1 Ml Inj) 0.25 mg IV Q10MIN PRN PRN Reason: Pain, Moderate (4-6) Stop: 03/23/21 23:00 Hydromorphone HCl (Hydromorphone 1 Mg/1 Ml Inj) 0.5 mg IV Q10MIN PRN PRN Reason: Pain , Severe (7-10) Stop: 03/23/21 23:00 Lactated Ringer's (Lactated Ringers) 1,000 mls @ 100 mls/hr IV DIRECT ASAD Last Admin: 03/23/21 09:45 Dose: 100 mls/hr Documented by: Midazolam HCl (Midazolam 2 Mg/2 Ml Inj) 2 mg IV PREOP NR Stop: 03/23/21 23:59 Ondansetron HCl (Ondansetron 4 Mg/2 Ml Inj) 4 mg IV ONCE PRN PRN Reason: Nausea And Vomiting Stop: 03/23/21 14:00 - Physical exam General appearance: no acute distress HEENT: Atraumatic Lungs: Normal air movement Breasts: deferred Heart: Regular rate Female Genitourinary: normal Rectal Exam: deferred Extremities: no ischemia - Brief post op/procedure progress note Date of procedure: 03/23/21 (See dictated note for details) - Hospital course Hospital course: Patient was admitted underwent the above him procedure without any complications. Patient will be discharged with follow-up in office in 1-2 weeks for postop check. - Disposition Condition at discharge: Good Disposition: DC-01 TO HOME OR SELFCARE - Discharge Diagnoses (1) Missed Status: Acute Short Stay Discharge Plan Activity: no restrictions, advance as tolerated Diet: regular Additional Instructions: Patient to call office for any fever, chills, nausea, vomiting or pain not controlled by pain medication. Follow up with: PRIMARY CARE, [Primary Care Provider] - 7 Days Prescriptions: Ferrous Sulfate [Feosol 325 MG tab] 325 mg PO BID #60 tablet Ibuprofen [Motrin] 800 mg PO Q6H PRN #30 tablet PRN Reason: Pain, Moderate (4-6) DOXYCYCLINE Hyclate [Vibramycin CAP] 100 mg PO Q12HR #14 capsule
[2021-03-23 13:08] VITALS: BP 112/60
--- NOTE | 2021-03-23 14:18 | Post Anesthesia Evaluation ---
- Post Anesthesia Evaluation Patient Participated: Yes Airway Patent: Yes Stable Respiratory Function: Yes Nausea/Vomiting: No Temp > 96.8F: Yes Pain Manageable: Yes Adequeate Hydration: Yes Anesthesia Complications: No Block Receding Appropriately: Not Applicable Patient on Ventilator: No
== END 2021-03-23 08:46 | disposition home or self-care (01) ==
LOC: OR 08:45
PROVIDERS: ATTEND Obstetrics & Gynecology
DX: O02.1 Missed abortion (principal); Z91.041 Radiographic dye allergy status; Z87.891 Personal history of nicotine dependence; Z98.890 Other specified postprocedural states; Z83.3 Family history of diabetes mellitus; Z80.8 Family history of malignant neoplasm of other organs or systems; Z82.49 Family history of ischemic heart disease and other diseases of the circulatory system
CPT/HCPCS: 36415; 59820; 85025; 86850; 86900; 86901; 88305; J1100; J1885; J2210; J2405; J2704; J3010; J7120

== ENCOUNTER 2022-01-17 09:37 | Observation (INO) | payer MEDICAID ==
--- NOTE | 2022-01-17 10:44 | History and Physical Report ---
History of Present Illness Date of examination: 01/17/22 Date of admission: 01/17/22 Chief complaint: I can't keep my food down History of present illness: Pt presents c/o having nausea and emesis that has not responded to zofran of phenergan supp. She has been to [facility] ED as well as [facility] and been treated for dehydration. Today is the office she has had a 6lb weight loss and states she is unable to eat anything. I d/w admission for observation and IV therapy. Pt expressed understanding and agrees with plan of care. EDC Confirmation: 08/02/2022 Gestational Age: 11 6/7 weeks Past History : 9 Term Births: 2 Premature Births: 0 Living Children: 2 Para: 2 Mult. Births: 0 Prev : 0 Aborta: 6 Elect. Ab: 2 Spont. Ab: 4 Ectopics: 0 # 1 Delivery date: 2009 Weeks Gestation: unsure Delivery type: SAB Comments: had D&C, no complications # 2 Delivery date: 2011 Weeks Gestation: 40 labor: no Delivery type: Hours of labor: 15 Anesthesia type: epidural Delivery location: [facility] Sex: Male weight: 7 lbs 8 oz Comments: lifecycle, no complications # 3 Delivery date: 2012 Weeks Gestation: unsure Delivery type: SAB Comments: had D&C, no complications # 4 Delivery date: 2013 Delivery type: EAB Comments: D&C, no complications # 5 Delivery date: 2016 Delivery type: EAB Comments: D&C, no complications # 6 Delivery date: 03/25/2018 Weeks Gestation: 39 labor: no Delivery type: Hours of labor: 9 Anesthesia type: epidural Delivery location: [facility] Infant Sex: female weight: 7.31 Name: "Padma" Comments: GBS+, no complications # 7 Delivery date: 03/23/2021 Weeks Gestation: 10 Delivery type: SAB Delivery location: [facility] Comments: Suction D&C # 8 Delivery date: 06/18/2021 Weeks Gestation: <4 Delivery type: SAB Comments: pt did not seek OB care Past Medical History: Reviewed history from 08/17/2021 and no changes required: "lump in chest during pregnancies"- reports subsequent syncope episodes with pain during pregnancies, had CT scan with dye and told to F/U with . Had allergic rxn to CT dye and never followed up Past Surgical History: Reviewed history from 08/17/2021 and no changes required: D&C: (2009) D&C: (2012) D&C: (2013) D&C: (2015) D&C: (03/23/2021) Family History Summary: First Degree Blood Relative - Has No Known Family History - Entered On: 12/11/2021 Social History: Patient is single Smoking History: Patient is a former smoker. 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 Infection History Hx of STD: none HIV Risk Eval: no Hepatitis B Risk Eval: low risk Personal hx. of genital herpes: no Partner hx. of genital herpes: no Rash, Viral, or Febrile illness since last LMP? no Varicella/Chicken Pox Status: Previous Disease TB Risk: no Genetic History Congenital Heart Defect: Mom: no Dad: no Brenda Disease: Mom: no Dad: no Thalassemia Mom: no Dad: no Neural Tube Defect Mom: no Dad: no Down's Syndrome Mom: no Dad: no Juan A-Sachs Mom: no Dad: no Sickle Cell Disease/Trait Mom: no Dad: no Hemophilia Mom: no Dad: no Muscular Dystrophy Mom: no Dad: no Cystic Fibrosis Mom: no Dad: no Shanel Chorea Mom: no Dad: no Mental Retardation Mom: no Dad: no Fragile X Mom: no Dad: no Other Genetic/Chromosomal Disorder Mom: no Dad: no Child w/other defect Mom: no Dad: no Enviromental Exposures Enviromental Exposures Reviewed Xray Exposure: no Medication, drug, or alcohol use since LMP: no Chemical/Other Exposure: no Exposure to Cat Liter: no Hx of Parvovirus (Fifth Disease): no Active Medications (reviewed today): Colace 100 mg capsule (docusate sodium) Take 1 capsule by mouth twice a day as needed for constipation ondansetron 8 mg tablet,disintegrating (ondansetron) Take 1 tablet by mouth every twelve hours as needed Put pill underneath your tongue every 12 hours as needed for nausea. 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) Family/Genetic History: other (see hpi) Social history: other (see hpi) - Obstetrical History Expected Date of Delivery: 08/02/22 Actual Gestation: 11 Week(s) 6 Day(s) : 6 Medications and Allergies Allergies Allergy/AdvReac Type Severity Reaction Status Date / Time Iodinated Contrast Media Allergy Anaphylaxis Verified 03/22/21 16:02 Home Medications Medication Instructions Recorded Confirmed Last Taken Type DOXYCYCLINE Hyclate [Vibramycin 100 mg PO Q12HR #14 capsule 03/23/21 Unknown Rx CAP] Ferrous Sulfate [Feosol 325 MG tab] 325 mg PO BID #60 tablet 03/23/21 Unknown Rx Ibuprofen [Motrin] 800 mg PO Q6H PRN #30 tablet 03/23/21 Unknown Rx Review of Systems All systems: negative - Physical Exam Cardiovascular: Normal S1, Normal S2 Lungs: Positive: Clear to auscultation, Normal air movement Abdomen: Positive: normal appearance, soft - Obstetrical FHR: auscultation normal Results All other labs normal. Assessment and Plan - Patient Problems (1) 11 weeks gestation of Status: Acute (2) Hyperemesis affecting , antepartum Status: Acute Plan to address problem: -admit -hyperemeis protocol - MW continuum of care manager aware of pt admission.
[2022-01-17] MEDS ORDERED: ONDANSETRON 4 MG/2 ML INJ IV PRN (12:00)
[2022-01-17] MEDS ORDERED: MULTIPLE VITAMIN INJ, ADULT 10 ML in D5W/LACTATED RINGERS 1,000 ML IV ONE (12:00)
[2022-01-17 12:33] LABS: Blood Urea Nitrogen 8 mg/dL (7-17); Hemolysis Index 2
[2022-01-17 12:34] LABS: BUN/Creatinine Ratio 13
[2022-01-17] MEDS: METOCLOPRAMIDE 10 MG/2 ML INJ IV SCH ×2 (13:10→20:06)
[2022-01-17] MEDS: PROMETHAZINE 25 MG RECT SUPP PR SCH ×2 (13:54→20:11)
[2022-01-17 14:29] LABS: Mucus,Urine 3+ /HPF
[2022-01-17 14:50] LABS: Bilirubin,Urine Negative (Negative); Blood,Urine Negative (Negative); Color,Urine Yellow (Yellow)
[2022-01-18] MEDS: D5W/LACTATED RINGERS 1,000 ML IV SCH ×2 (00:20→07:33)
[2022-01-18] MEDS: METOCLOPRAMIDE 10 MG/2 ML INJ IV SCH ×2 (04:09→11:47)
[2022-01-18] MEDS: PROMETHAZINE 25 MG RECT SUPP PR SCH ×2 (04:11→11:30)
[2022-01-18] MEDS ORDERED: PRENATAL VIT27-FE FUMARATE-FOLIC ACID VIT TAB PO SCH (10:00)
[2022-01-18 13:24] VITALS: BP 105/53
--- NOTE | 2022-01-18 13:44 | Discharge Summary ---
Providers - Providers Date of Admission: 01/17/22 10:59 Date of discharge: 01/18/22 Attending physician: STEPHEN GEORGE Primary care physician: STEPHEN GEORGE Hospitalization Reason for admission: other (Hyperemesis) Discharge diagnosis: other (Undelivered @ 14 + wks) Hospital course: S: Pt doing well. Able to keep down crackers, water. Denies vaginal bleeding, abdominal pain/cramping. O: VSS. Ketones negative. Labs WNL. A: 31 y.o. @ 14 + wks, admitted d/t hyperemesis. In good condition. P: Discharge home with instructions. Pt to keep scheduled appointment. Pt to call chronic manager provider if she still has problems with n/v. Condition at discharge: Good Disposition: 01 HOME / SELF CARE / HOMELESS Plan - Discharge Medications Prescriptions: Metoclopramide [Reglan] 10 mg PO TID #60 tab - Provider Discharge Summary Diet: routine Instructions: routine Additional instructions: [] Smoking cessation referral if applicable(refer to patient education folder for contact #) [] Refer to [facility]'s [facility] Booklet Call your doctor immediately for: * Fever > 100.5 * Heavy vaginal bleeding ( >1 pad per hour) * Severe persistent headache * Shortness of breath * Reddened, hot, painful area to leg or breast * Drainage or odor from incision. * Keep incision clean and dry at all times and follow doctor's instructions regarding bathing/showering - Follow up plan Follow up: STEPHEN GEORGE MD [Primary Care Provider] - 7 Days (Please keep your scheduled appointment. Please call the chronic manager provider or the office if you are able keep down any food or water for more than 24 hours. )
== END 2022-01-18 13:30 | disposition home or self-care (01) ==
LOC: UNDOADMOB 09:37 → 3A 09:37 → OB 10:59
PROVIDERS: ADMIT Obstetrics & Gynecology; ATTEND Obstetrics & Gynecology
DX: O21.0 Mild hyperemesis gravidarum (principal); Z20.822 Contact with and (suspected) exposure to COVID-19; Z3A.11 11 weeks gestation of pregnancy; Z79.899 Other long term (current) drug therapy; Z98.890 Other specified postprocedural states; Z87.891 Personal history of nicotine dependence
CPT/HCPCS: 36415; 80048; 81001; 82150; 83690; 84443; 96361; 96365; 96366; 96375; 96376; G0378; G0379; J2765; J7121; U0003; J7060